=== PATIENT | female | born 1985 | race Hispanic/Latino ===

== ENCOUNTER 2017-02-23 15:33 | Emergency (ER) | payer OTHER ==
[2017-02-23 15:37] VITALS: BP 108/70
--- NOTE | 2017-02-23 18:37 | Emergency Department Report ---
Chief Complaint: Upper Respiratory Infection Stated Complaint: FLU LIKE SYMPTOMS Time Seen by Provider: 02/23/17 16:52 - HPI History of Present Illness: Patient is a 31-year-old Emily female who presents with flulike symptoms for approximately 1 week. Patient states she's had a nonproductive cough sore throat headache or back pain for approximately a week. Patient also has had some minor rhinorrhea as well. Eyes any nausea vomiting diarrhea chest pain dysuria or abnormal vaginal bleeding at this time - ROS Review of Systems: Review of systems negative except for those systems in the HPI - Exam Vital Signs: Vital Signs 02/23/17 15:35 Temperature 98.5 F Pulse Rate 74 Respiratory 18 Rate Blood Pressure 108/70 O2 Sat by Pulse 100 Oximetry Physical Exam: Focused physical exam general patient is alert and oriented no acute distress HEENT oropharynx is slightly erythematous with no exudate no anterior cervical lymph nodes lungs clear to auscultation bilateral heart S1-S2 no murmurs gallops or rubs abdomen soft nontender back exam nontender skin no rash neuro exam grossly normal MSE screening note: Focused history and physical exam performed. Due to findings the following was ordered: Fluent rapid strep have been ordered ED Disposition for MSE Clinical Impression: Upper respiratory infection Disposition: DC-01 TO HOME OR SELFCARE Is pt being admited?: No Does the pt Need Aspirin: No Condition: Fair Instructions: Upper Respiratory Infection (ED) Prescriptions: ALBUTEROL Inhaler [ProAir HFA Inhaler] 2 puff IH QID PRN #1 inhalation PRN Reason: Shortness Of Breath Azithromycin [Zithromax Z-MILTON] 250 mg PO DAILY #6 tablet predniSONE [Deltasone] 20 mg PO QDAY #5 tab traMADol [Ultram] 50 mg PO Q4HR PRN #10 tablet PRN Reason: Pain Referrals: PRIMARY CARE,MD [Primary Care Provider] - 3-5 Days
== END 2017-02-23 18:53 | disposition home or self-care (01) ==
LOC: ED 15:33
DX: J06.9 Acute upper respiratory infection, unspecified (principal)
CPT/HCPCS: 87116; 87400; 87430; 99282